=== PATIENT | male | born 1995 | race Two or more races ===

== ENCOUNTER 2021-12-22 23:45 | Inpatient (IN) | payer MEDICAID ==
[~2021-12-22] VITALS: Ht 129.5 cm; Wt 28.1 kg
[2021-12-22 23:45] VITALS: BP 87/57
--- NOTE | 2021-12-22 23:46 | NUR ---
[facility] TO BED #9
[2021-12-22] MEDS ORDERED: NACL 0.9% 1,000 ML IV ONE (23:55)
--- NOTE | 2021-12-23 00:19 | NUR ---
SPOKE TO PATIENTS FATHER [phone] TO GET INFORMATION ON PATIENTS HX.
[2021-12-23 00:25] LABS: APPEARANCE,URINE CLEAR (CLEAR); BILIRUBIN,URINE NEGATIVE (NEGATIVE); BLOOD, URINE NEGATIVE (NEGATIVE); COLOR,URINE YELLOW (YELLOW); LEUKOCYTE ESTERASE ,URINE NEGATIVE (NEGATIVE); NITRITE, URINE NEGATIVE (NEGATIVE); PH,URINE 7.5 (5.0-9.0); UGLUCOSE NEGATIVE (NEGATIVE)
--- NOTE | 2021-12-23 00:26 | NUR ---
26/M BIBA FROM HOME C/C FEVER XTODAY +COUGH +CONGESTION AND COLD S/S. FATHER GAVE COUGH SYRUP AND IBUPROFEN AT 6PM. MEDIC NOTED BP 86/57. 12 LEAD EKG SHOWED SR @85. CURRENT BP 93/61. ERMD AWARE. IV INITIATED AND IVF STARTED. PMHX AUTISM, QUADRIPLEGIC, DOWN SYNDROME, UTIS NKA
--- NOTE | 2021-12-23 00:30 | NUR ---
MOTHER AT BEDSIDE
--- NOTE | 2021-12-23 00:41 | NUR ---
LAB AT BEDSIDE
[2021-12-23 00:51] LABS: BASOPHILS % (AUTO) 0.3 % (0.0-2.0); EOSINOPHILS # (AUTO) 0.1 K/uL (0-0.4); EOSINOPHILS % (AUTO) 0.6 % (0.0-4.0); HEMATOCRIT 32.7 % (36-52); LYMPHOCYTES # (AUTO) 0.9 K/uL (2.0-11.5); LYMPHOCYTES % (AUTO) 6.5 % (20.5-51.1); MEAN CORPUSCULAR HEMOGLOBIN 28 pg (27-31); MEAN CORPUSCULAR HGB CONC 34 g/dL (33-37); MEAN CORPUSCULAR VOLUME 83.3 fL (80-94); MONOCYTES # (AUTO) 0.9 K/uL (0.8-1.0); MONOCYTES % (AUTO) 6.6 % (1.7-9.3); NEUTROPHILS # (AUTO) 11.9 K/uL (1.8-7.7); PLATELET COUNT (AUTO) 315 K/uL (140-450); RED BLOOD CELL COUNT(AUTO) 3.93 MIL/uL (4.20-6.10); RED CELL DISTRIBUTION WIDTH 12.3 % (11.6-13.7); WHITE BLOOD COUNT (AUTO) 13.8 K/uL (4.8-10.8)
[2021-12-23] MEDS ORDERED: AZITHROMYCIN 500 MG in DEXTROSE 5% 250 ML IV ONE (01:00)
[2021-12-23] MEDS ORDERED: cefTRIAXone 1,000 MG VIAL ONE (01:15)
[2021-12-23 01:17] LABS: PROTHROMBIN TIME 13.2 secs (10.8-13.4)
[2021-12-23 01:55] LABS: ALBUMIN 2.7 g/dL (3.4-5.0); ANION GAP 7.4 (8-16); CARBON DIOXIDE 29.4 mmol/L (21-32); CREATININE 0.5 mg/dL (0.6-1.3); POTASSIUM 3.8 mmol/L (3.5-5.1); TOTAL BILIRUBIN 0.4 mg/dL (0.0-1.0)
--- NOTE | 2021-12-23 01:57 | NUR ---
Patient being evaluated by physician at bedside.
--- NOTE | 2021-12-23 01:59 | NUR ---
MOTHER JEANNIE WOULD LIKE TO BE UPDATED WITH PATIENT STATUS.
[2021-12-23] MEDS ORDERED: AZITHROMYCIN 500 MG INJ VIAL IV ONE (02:01)
--- NOTE | 2021-12-23 03:20 | NUR ---
PATIENT RESTING IN BED. CHANGED AND REPOSITIONED. DOESNT APPEAR TO BE IN DISTRESS. RR EVEN AND UNLBORED. BED LOW AND LOCKED. LAURA SIDE RAILS UP FOR SAFETY. ALL NEEDS MET
--- NOTE | 2021-12-23 05:20 | NUR ---
REPORT GIVEN TO JEANINE FERNANDEZ. TRANSFER OF CARE
--- NOTE | 2021-12-23 05:26 | NUR ---
Patient will be admitted to [facility]. Admited to MED SURG. Will go to room 110A. Belongings list completed. Report to JEANINE FERNANDEZ.
--- NOTE | 2021-12-23 05:30 | NUR ---
SPOKE TO PATIENTS FATHER TO UPDATE ON THE PATIENTS STATUS.
[2021-12-23 05:40] VITALS: BP 104/78
--- NOTE | 2021-12-23 05:40 | NUR ---
RECEIVED PATIENT IN BED, AWAKE. NO S/SX OF PAIN NOR DISCOMFORT. NO ACUTE RESPIRATORY DISTRESS NOTED. INCONTINENT OF URINE, PERINEAL CARE RENDERED, MADE COMFORTABLE IN BED. SKIN WARM AND DRY TO TOUCH. SAFETY PRECAUTION IN PLACE, CALL LIGHT IN REACH.
--- NOTE | 2021-12-23 05:51 | NUR ---
SPOKE WITH MOTHER MAYSOUN REGARDING ADMISSION QUESTIONS AND INFORMED OF RM NUMBER.
--- NOTE | 2021-12-23 06:20 | NUR ---
PATIENT CURRENTLY ASLEEP. NO DISTRESS NOTED. ALL NEEDS ATTENDED TO. SAFETY PRECAUTION MAINTAINED.
[2021-12-23] MEDS ORDERED: ZOLPIDEM 10 MG TAB PO PRN (07:45)
[2021-12-23] MEDS ORDERED: ONDANSETRON 4 MG/2 ML VIAL IVP PRN (07:45)
[2021-12-23] MEDS ORDERED: ACETAMINOPHEN 325 MG TAB PO PRN (07:45)
[2021-12-23] MEDS ORDERED: VANCOMYCIN PER PHARMACY MC PRN (07:45)
[2021-12-23] MEDS ORDERED: DOCUSATE SODIUM 100 MG GELCAP PO PRN (07:45)
[2021-12-23] MEDS ORDERED: LORazepam 2 MG/ML VIAL IVP PRN (07:45)
[2021-12-23] MEDS ORDERED: MORPHINE SULFATE 2 MG/ML SYR IVP PRN (07:45)
[2021-12-23] MEDS ORDERED: POTASSIUM CHLORIDE 10 MEQ TABER PO PRN (07:45)
[2021-12-23] MEDS ORDERED: MAG SULF 2000 MG/WATER PREMIX 50 ML IV PRN (07:45)
--- NOTE | 2021-12-23 09:06 | NUR ---
PT. WITH LOW HELEN SCALE AT HIGH RISK, CONTINUE TO FOLLOW PRESSURE INJURY PREVENTION INTERVENTIONS. -POSITIONING: TURN AND REPOSITION PATIENT Q 2H OR SOONER USE PILLOWS TO KEEP BONY PROMINENCES FROM DIRECT CONTACT WITH SURFACES USE REPOSITIONING WEDGES TO PROVIDE 30-DEGREE ANGLE FOR SIDE LYING POSITIONS OFFLOADING OR FOAM DRESSING TO ALL TUBING TO PREVENT MEDICAL DEVICES RELATED PRESSURE INJURY -RE-EVALUATING AND MANAGING INCONTINENCE MONITOR SKIN CONDITION DURING POSITION CHANGE DO NOT MASSAGE REDNESS, BONY PROMINENCES FREQUENT BHAKTI-CARE AND PROVIDE BARRIER CREAMS PRN IF SOILING MOISTURE CONTROL BY OFFER BED JACOB/URINAL /ABSORBENT PAD TO WICK AND HOLD MOISTURE KEEP SKIN DRY AND PROTECT FROM FRICTION -MANAGE FRICTION/SHEAR/MOBILITY KEEP HOB AT THE LOWEST LEVEL OF ELEVATION NO MORE THAN 30 DEGREE UNLESS OTHERWISE CONTRAINDICATED USE LIFT SHEET OR TRANSFER DEVICE TO MOVE PATIENT AND PREVENT LATERAL SHEER. PROTECT HEELS, ELBOWS BONY PROMINENCES WITH SKIN BERRIES OR FOAM DRESSING IF EXPOSED TO FRICTION OFFLOAD BILATERAL HEELS BY PLACING PILLOWS UNDER CALVES AT ALL TIMES, UNLESS OTHERWISE CONTRAINDICATED -PRESSURE REDISTRIBUTION SURFACE THERAPY SAMIA ISOFLEX MATTRESS -NUTRITION: PLEASE FOLLOW RD RECOMMENDATIONS AND OFFER NUTRITION SUPPLEMENTS IF ORDERED. PLEASE CONTACT WOUND CARE NURSE FOR ANY QUESTION AND CHANGE OF WOUND CONDITION.
[2021-12-23 09:44] VITALS: BP 95/63
--- NOTE | 2021-12-23 10:12 | NUR ---
PATIENT HAS BEEN SCREENED AND CATEGORIZED HIGH NUTRITION RISK. PATIENT WILL BE SEEN WITHIN 1-2 DAYS OF ADMISSION. 12/23/21-12/25/21 REVIEWED BY SERENA BEYER RD
[2021-12-23] MEDS: PIPERACILLIN/TAZOBACTAM 3.375 GM in DEXTROSE 5% 50 ML IV SCH ×2 (12:00→23:02)
[2021-12-23 12:12] VITALS: BP 95/63
[2021-12-23] MEDS: VANCOMYCIN 500 MG in DEXTROSE 5% 100 ML IV SCH (12:48)
--- NOTE | 2021-12-23 15:30 | NUR ---
12/23/21 RD INITIAL ASSESSMENT COMPLETED PLEASE REFER TO NUTRITION ASSESSMENT UNDER CARE ACTIVITY FOR ESTIMATED NUTRITIONAL NEEDS. 1. RECOMMEND REGULAR PUREE DIET OR PER ST RECOMMENDATIONS 2. RECOMMEND ENSURE TID FOR NUTRITION SUPPORT. 3. RD TO FOLLOW-UP 3-5 DAYS, MODERATE RISK REVIEWED BY SERENA BEYER RD
--- NOTE | 2021-12-23 15:34 | NUR ---
DC PLANNING PT IS NONVERBAL, THEREFORE, SW MET WITH PT'S MOTHER AT BEDSIDE TO GATHER COLLATERAL INFORMATION. PT MOTHER IDENTIFIED HERSELF, USMAN, AND KENZIE PLASCENCIA, SISTER, EMERGENCY CONTACT AND MDM. PT IS REPORTED TO MEET WITH PCP, 1-2X YEAR, LAST VISIT 3 MONTHS AGO. PATIENT IS REPORTED TO BE PRIMARILY BED BOUND AND IS TOTAL CARE AT HOME, PT MOTHER WELL HIRED CAREGIVERS AID IN PT CARE. CAREGIVERS ARE REPORTED TO PROVIDE CARE EVERY DAY. PTS MOM DENIES HX OF SNF PLACEMENT, DIABETES, DIALYSIS AND HOME HEALTH SERVICES. PTS MOTHER INDICATES SUPPORTIVE FAMILY AND FRIENDS AND REPORTS PT HAS 2 SIBLINGS THAT ARE DRS. DC PLAN IS FOR PT TO RETURN HOME WHEN MEDICALLY STABLE. Addendum: 12/23/21 at 1535 by Danielle Parker SS Amended: Links added.
[2021-12-23 16:00] VITALS: BP 99/57
--- NOTE | 2021-12-23 19:15 | NUR ---
RECEIVED REPORT FROM DAY NURSE. PATIENT IS LYING ON THE BED, BREATHING EVEN AND NON LABORED, NO SIGNS OF PAIN NOTED. PATIENT HAS G 20 ON LEFT FOREARM IV ACCESS SITE, FLUSH WITHOUT RESISTANCE. SAFETY PRECAUTIONS MAINTAINED.
[2021-12-23 20:00] VITALS: BP 85/52
--- NOTE | 2021-12-23 21:30 | NUR ---
PATIENT HAD A BOWEL MOVEMENT, CLEANED PATIENT. REPOSITIONED FOR COMFORT, HEAD OF THE BED ELEVATED. CALL LIGHT IN REACH.
--- NOTE | 2021-12-23 22:04 | NUR ---
INFORMED GAGE SALGADO OF BP- REPEATED , ORDERED TO START IVF OF NS AT 100 ML/HR. WILL CARRY OUT ORDERED.
[2021-12-23] MEDS: NACL 0.9% 1,000 ML IV SCH (22:24)
--- NOTE | 2021-12-23 23:38 | NUR ---
CURRENT BP-96/45. PATIENT IS ASLEEP. NO DISTRESS NOTED. SAFETY PRECAUTION IN PLACE.
--- NOTE | 2021-12-24 02:00 | NUR ---
REPOSITIONED PATIENT. NO S/SX OF PAIN NOR DISCOMFORT.
[2021-12-24] MEDS: VANCOMYCIN 500 MG in DEXTROSE 5% 100 ML IV SCH (03:33)
[2021-12-24 04:00] VITALS: BP 103/49
--- NOTE | 2021-12-24 04:15 | NUR ---
PULLED UP IN BED AND REPOSITIONED PT. BREATHING EVEN AND UNLABORED.
[2021-12-24] MEDS: PIPERACILLIN/TAZOBACTAM 3.375 GM in DEXTROSE 5% 50 ML IV SCH (05:19)
--- NOTE | 2021-12-24 06:43 | NUR ---
PATIENT IS AWAKE, NO SIGNS OF PAIN/DISCOMFORT NOTED. SAFETY PRECAUTIONS IN PLACE.
[2021-12-24 07:25] LABS: ANION GAP 8.9 (8-16); CARBON DIOXIDE 28.2 mmol/L (21-32); CREATININE 0.6 mg/dL (0.6-1.3); POTASSIUM 4.1 mmol/L (3.5-5.1)
--- NOTE | 2021-12-24 07:30 | NUR ---
RECEIVED PATIENT FROM FILTER TIP CATCHER NURSE FOR CONTINUITY OF CARE. PT IS AOX0, APHASIC. RESPIRATIONS EVEN AND UNLABORED. ON ROOM AIR AND NO DISTRESS NOTED. SKIN IS WARM, DRY, AND INTACT. IV SITE ON LFA 20 INFUSING FLUIDS WELL. FLACC 0. PLAN OF CARE DISCUSSED. SAFETY PRECAUTIONS IN PLACE. BED IN LOW POSITION. CALL LIGHT WITHIN REACH. WILL CONTINUE TO MONITOR.
[2021-12-24 07:35] LABS: BASOPHILS % (AUTO) 0.2 % (0.0-2.0); EOSINOPHILS # (AUTO) 0.1 K/uL (0-0.4); EOSINOPHILS % (AUTO) 0.6 % (0.0-4.0); HEMATOCRIT 28.8 % (36-52); HEMOGLOBIN 9.7 g/dL (12.0-18.0); LYMPHOCYTES # (AUTO) 0.7 K/uL (2.0-11.5); LYMPHOCYTES % (AUTO) 6.3 % (20.5-51.1); MEAN CORPUSCULAR HEMOGLOBIN 28 pg (27-31); MEAN CORPUSCULAR HGB CONC 34 g/dL (33-37); MEAN CORPUSCULAR VOLUME 83.7 fL (80-94); MONOCYTES # (AUTO) 0.5 K/uL (0.8-1.0); MONOCYTES % (AUTO) 4.5 % (1.7-9.3); NEUTROPHILS # (AUTO) 9.3 K/uL (1.8-7.7); PLATELET COUNT (AUTO) 355 K/uL (140-450); RED BLOOD CELL COUNT(AUTO) 3.44 MIL/uL (4.20-6.10); RED CELL DISTRIBUTION WIDTH 12.6 % (11.6-13.7); WHITE BLOOD COUNT (AUTO) 10.5 K/uL (4.8-10.8)
[2021-12-24 08:00] VITALS: BP 96/63
[2021-12-24 08:06] LABS: NEUTROPHILS % (AUTO) 88.4 % (42.2-75.2)
[2021-12-24] MEDS: NACL 0.9% 1,000 ML IV SCH (08:28)
[2021-12-24] MEDS ORDERED: AMOX-999 PO (08:33)
[2021-12-24 09:18] VITALS: BP 96/63
--- NOTE | 2021-12-24 09:35 | NUR ---
ENDORSED DISCHARGE INSTRUCTIONS TO PATIENT'S MOTHER. PT IS UNABLE TO SIGN OR COMPREHEND DUE TO CONDITION; HOWEVER, PT'S MOTHER VERBALIZED UNDERSTANDING AND SIGNED DISCHARGE FORMS.
--- NOTE | 2021-12-24 09:40 | NUR ---
PATIENT DISCHARGED OFF THE UNIT. IV CATHETER WAS REMOVED. PT WAS STABLE. PRIOR TO DISCHARGE.
== END 2021-12-24 10:15 | disposition home or self-care (01) | DRG 720 ==
LOC: MED 23:45 → MTU 12-23 05:19
PROVIDERS: ADMIT Family Medicine; ATTEND Family Medicine
DX: A41.9 Sepsis, unspecified organism (principal); J69.0 Pneumonitis due to inhalation of food and vomit; G82.50 Quadriplegia, unspecified; E44.0 Moderate protein-calorie malnutrition; E87.1 Hypo-osmolality and hyponatremia; E83.51 Hypocalcemia; Z20.822 Contact with and (suspected) exposure to COVID-19; D64.9 Anemia, unspecified; F84.0 Autistic disorder; Q90.9 Down syndrome, unspecified; Z68.1 Body mass index [BMI] 19.9 or less, adult
CPT/HCPCS: 36415; 71045; 80048; 80053; 81003; 83605; 83735; 85025; 85610; 85730; 87040; 87081; 92526; 93005; 96361; 96365; 96367; 99285; J0456; J0696; J2543; J3370; J7060; Q0092